=== PATIENT | male | born 1935 | race Caucasian/White ===

== ENCOUNTER 2018-02-24 12:47 | Day surgery (SDC) | payer MEDICARE, OTHER ==
[~2018-02-24] VITALS: Ht 177.8 cm; Wt 56.5 kg
[2018-02-24 13:39] VITALS: BP 180/96; PULSE 70; TEMP 97.6
[2018-02-24 17:57] VITALS: BP 93/53; PULSE 61; TEMP 98
[2018-02-24 18:15] VITALS: BP 164/71; PULSE 16; TEMP 98
[2018-02-24 18:30] VITALS: BP 132/63; PULSE 62; TEMP 98
[2018-02-24 18:45] VITALS: BP 165/71; PULSE 60; TEMP 98
[2018-02-24 19:55] VITALS: BP 178/74; PULSE 67; TEMP 97.9
[2018-02-25 17:55] VITALS: BP 114/65; PULSE 70
== END 2018-02-24 21:30 ==
LOC: SDCO 12:47
DX: K80.50 Calculus of bile duct without cholangitis or cholecystitis without obstruction (principal); K83.8 Other specified diseases of biliary tract; J44.9 Chronic obstructive pulmonary disease, unspecified; Z87.891 Personal history of nicotine dependence; Z86.73 Personal history of transient ischemic attack (TIA), and cerebral infarction without residual deficits
CPT/HCPCS: OP; C1769; C2625; J1610; J2704; J7030; Q9967